=== PATIENT | female | born 1985 | race Two or more races ===

== ENCOUNTER 2025-01-15 07:46 | Emergency (ER) | payer MEDICAID, SELFPAY ==
[2025-01-15 07:54] VITALS: BP 126/83; PULSE 85; RESP 16; TEMP 36.8; O2SAT 100
[2025-01-15 07:55] VITALS: BMI 25.7
--- NOTE | 2025-01-15 08:06 | PD.EDEXREM ---
ED Extremity Problem RME/HPI General Chief complaint: Extremity Problem,Nontraumatic Stated complaint: RIGHT ARM PAIN X 1 WK WITH NUMBNESS Time Seen by Provider: 01/15/25 07:51 Source: patient Arrival date/time: 01/15/25 07:46 39-year-old female with no known medical history presents to the emergency room with a chief complaint of right shoulder pain and numbness that shoots around her right arm x 1 week. Patient denies any trauma injury. Mode of arrival: ambulatory Limitations: no limitations Related Data Home Medications ?Medication ?Instructions ?Recorded ?Confirmed prenat.vits,ayaan,lta-[id number] 1 tab PO QDAY 09/10/22 09/10/22 Previous Rx's ?Medication ?Instructions ?Recorded ibuprofen 600 mg tablet 600 mg PO Q8H PRN fever or pain 01/15/25 #20 tabs Allergies Allergy/AdvReac Type Severity Reaction Status Date / Time No Known Allergies Allergy Unverified 01/15/25 07:49 Review of Systems Review of Systems Systems Reviewed: All systems reviewed, normal except as documented Constitutional Constitutional: Reports system reviewed and no additional complaints, except as documented, Denies fatigue, Denies fever(s), Denies headache(s) and Denies weakness Eyes Eyes: Reports system reviewed and no additional complaints, except as documented, Denies blurry vision and Denies change in vision ENT Ears, Nose, Mouth, and Throat: Reports system reviewed and no additional complaints, except as documented, Denies otalgia, Denies headache(s), Denies nasal congestion, Denies throat swelling and Denies vertigo Cardiovascular Cardiovascular: Reports system reviewed and no additional complaints, except as documented, Denies chest pain, Denies dyspnea and Denies dyspnea on exertion Respiratory Respiratory: Reports system reviewed and no additional complaints, except as documented, Denies chest congestion, Denies cough, Denies dyspnea, Denies dyspnea on exertion and Denies wheezing Gastrointestinal Gastrointestinal: Reports system reviewed and no additional complaints, except as documented, Denies abdominal pain, Denies cramping, Denies nausea and Denies vomiting Genitourinary Genitourinary: Reports system reviewed and no additional complaints, except as documented Musculoskeletal Musculoskeletal: Reports system reviewed and no additional complaints, except as documented, Reports arthralgias, Denies back pain, Denies joint swelling, Reports limited range of motion and Reports tingling Integumentary/Breasts Skin/Breast: Reports system reviewed and no additional complaints, except as documented and Denies wounds Neurologic Neurologic: Reports system reviewed and no additional complaints, except as documented, Denies confusion, Denies headache(s), Denies lack of coordination, Reports tingling, Denies vertigo and Denies weakness Psychiatric Psychiatric: Reports system reviewed and no additional complaints, except as documented, Denies anxiety, Denies confusion, Denies depression, Denies paranoia, Denies suicidal ideation and Denies tactile hallucinations Endocrine Endocrine: Reports system reviewed and no additional complaints, except as documented and Denies fatigue Hematologic/Lymphatic Hematologic/Lymphatic: Reports system reviewed and no additional complaints, except as documented and Denies lymphadenopathy Allergic/Immunologic Allergic/Immunologic: Reports system reviewed and no additional complaints, except as documented, Denies throat swelling, Denies urticaria and Denies wheezing Past Medical History Past Medical History NEUROLOGIC: Negative Neurological Disorders CARDIAC: Negative Cardiac Disorders or Congestive Heart Failure RESPIRATORY: Negative Chronic Obstructive Pulmonary Disease (COPD) GASTROINTESTINAL: Negative Gastrointestinal Disorders or Hepatitis GENITOURINARY: Negative Genitourinary Disorders or Renal Disease MUSCULOSKELETAL: Negative Musculoskeletal Disorders ENDOCRINE: Negative Endocrine Disorders, Diabetes Mellitus Type 1 or Diabetes Mellitus Type 2 HEMATOLOGIC: Negative Blood Disorders OTHER HISTORY: Positive Hospitalization (CHILDBIRTH) and Chicken Pox; Negative Autoimmune Disease, Down Syndrome, Developmental Delay, Shingles, Falls, Blood Transfusions, MRSA, VRSA, Vancomycin-Resistant Enterococci, Human Immunodeficiency Virus (HIV), Measles, Mumps, Rubella (Irish Measles), Pertussis, Clostridium Difficile or Cancer Family History FAMILY HISTORY: Negative Family Psychiatric Problems, Family Respiratory Disorders, Family Cardiac Disorders, Family Gastrointestinal Problems, Family Cancer or Family Surgery Surgical History SURGICAL: Negative Section Social History SMOKING STATUS: Never smoker SECOND HAND EXPOSURE: No ED Exam General Limitations: Present no limitations General appearance: Present alert and in no apparent distress Head Head exam: Present atraumatic Eye Eye exam: Present normal appearance, PERRL and EOMI ENT ENT exam: Present normal exam, normal oropharynx and mucous membranes moist Neck Neck exam: Present normal inspection, full ROM and trachea midline Chest Chest inspection: Present normal inspection and symmetric chest wall rise Respiratory Respiratory exam: Present normal lung sounds bilaterally Cardiovascular Cardiovascular exam: Present regular rate, normal rhythm and normal heart sounds Abdominal Exam Abdominal exam: Present soft and normal bowel sounds Extremities Exam Extremities exam: Present normal inspection and full ROM Expanded Upper Extremity Exam Shoulder exam: Present tenderness; Absent full ROM, swelling, abrasion, deformity or tenderness over AC joint Arm exam: Present normal inspection Elbow exam: Present normal inspection Forearm/Wrist exam: Present normal inspection Hand exam: Present normal inspection Vascular exam: Normal capillary refill Back Exam Back exam: Present normal inspection and full ROM Neurological Exam Neurological exam: Present alert, oriented X3 and CN II-XII intact Psychiatric Psychiatric exam: Present normal affect and normal mood Skin Skin exam: Present warm, dry, intact and normal color Course Quality Measures none Orders Category Date Time Status Ketorolac Inj [Toradol Inj] Med 01/15/25 08:06 Discontinued 30 mg IM X1 ONE Vital Signs Vital signs: Vital Signs Temperature 98.3 F 01/15/25 07:54 Pulse Rate 85 01/15/25 07:54 Respiratory Rate 16 01/15/25 07:54 Blood Pressure 126/83 01/15/25 07:54 Pulse Oximetry (%) 100 01/15/25 07:54 Oxygen Delivery Method Room Air 01/15/25 07:54 O2 saturation 100% within normal limits Extremity Problem MDM Narrative MDM Narrative:: 39-year-old female with no known medical history presents to the emergency room with a chief complaint of right shoulder pain and numbness that shoots around her right arm x 1 week. Patient denies any trauma injury. Patient is hemodynamically stable and in no apparent distress. Physical examination shows a limited range of motion to the right shoulder. Patient has difficulty raising it above her head. Patient denies any trauma to the area and there is no point tenderness. Patient states that her tenderness occurs when she moves her arm. Patient has good +2 capillary refill to the arm. There is active pulses that are strong and regular bilaterally. There is no discoloration or temperature change to the arm. Patient states she has numbness that is intermittent and shoots down her right arm. The patient denies any traumatic injury there is no pulling injury. Patient was given medication and educated that she needs to follow-up with her primary care provider as an MRI is indicated to check for any ligament damage or tears. Patient was educated return to the emergency room for any evidence of worsening signs or symptoms Patient data External records reviewed:: [facility] previous records Clinical information provided by:: patient Social determinants that could affect healthcare access:: none Patient has the following chronic illnesses:: No chronic illness How is presenting disease/condition affected by chronic disease/condition?: no chronic disease Evaluation data The following diagnostics were reviewed and interpreted by me:: lab results and radiology exam(s) Lab and/or radiology exams considered but not ordered:: Labs and radiology exams considered and ordered Interpretation Summary: N/A Medications / Prescriptions Medications or Prescriptions considered but not ordered:: N/A Medication administrations:: Medication Administration History Discontinued Medications Ketorolac Tromethamine (Ketorolac Inj 60 Mg/2 Ml Vial) 30 mg IM X1 ONE Stop: 01/15/25 08:07 Medication given Consultations Consultation(s) initiated? (list below): No Diagnosis Extremity Problem Differential Diagnosis: other (Shoulder sprain/shoulder fracture) Most likely diagnosis given after review of the tests above:: Shoulder sprain Admission Indicated Admission indicated?: not indicated Admission Request Was there a request for admission?: No Disposition Plan Disposition Plan: Discharge Discharge Attestation Discharge Attestation: The patient and all family members were given an opportunity to ask questions and understood the discharge instructions. Discharge instructions specifically effects, indications for sooner follow up or return to the emergency department, and the expected course of current diagnosis. Patient condition: Stable Discharge Plan Plan Patient Disposition: HOME (Self Care) Disposition Comment: Stable Prescriptions/Referrals Prescriptions/Med Rec: New ibuprofen 600 mg tablet 600 mg PO Q8H PRN (Reason: fever or pain) Qty: 20 0RF No Action Vitamin Tablet 1 tab PO QDAY Problem List Clinical Impression: Sprain of right shoulder joint Patient/Caregiver Discharge Instructions Education Materials: Self-Care for Strains and Sprains, ED Shoulder Sprain Additional Instructions: Please follow-up with your primary care provider in the next 24 to 48 hours. The injury that you have in your shoulder is ligament related. Please follow-up with your primary care provider if your symptoms continue as an MRI may be indicated to check for any ligament damage or tears. I sent over medication that we will help with your swelling. For any evidence of worsening signs or symptoms return to the emergency room immediately Print Language: Azeri Stand Alone Forms: Keke Award Info., Patient Portal Info Letter PA/VICE PRESIDENT OF ENGINEERING Supervising Physician PA/VICE PRESIDENT OF ENGINEERING Supervising Physician: Dr. Fabian
[2025-01-15] MEDS: KETOROLAC INJ 60 MG/2 ML VIAL 30 MG IM (08:35)
== END 2025-01-15 08:39 | disposition home or self-care (01) ==
LOC: SERX 08:46
PROVIDERS: Emergency Provider Emergency Medicine; PCP Physician Assistant
DX: S43.401A Unspecified sprain of right shoulder joint, initial encounter (principal); X58.XXXA Exposure to other specified factors, initial encounter
CPT/HCPCS: 96372; 99283; J1885

== ENCOUNTER → 2025-01-17 | Outpatient (CLI) | payer MEDICAID, SELFPAY ==
--- NOTE | 2025-01-17 | XR_ITS ---
Examination: Shoulder,right, 3 views Technique: Shoulder AP internal rotation, AP external rotation, Y view shoulder, 3 views Exam date and time :January 17, 2025 0731 hrs. Indications: Right shoulder neck pain beginning one week ago Findings: No shoulder fracture or dislocation No arthritic change No calcific tendinitis Impression: Negative examination
--- NOTE | 2025-01-17 | XR_ITS ---
EXAMINATION: Cervical spine, 5 views Technique: Cervical spine AP, AP odontoid, lateral, bilateral obliques, 5 views Exam date and time: January 17, 2025 0725 hrs. Indications: Right shoulder neck pain beginning one week ago. Findings: Reversal normal cervical lordosis Mild disc narrowing C5-C6 No significant neural foraminal stenosis The odontoid is intact Impression: No cervical fracture Early degenerative disc disease C5-C6
== END | disposition home or self-care (01) ==
PROVIDERS: PCP Physician Assistant; Referring Provider Physician Assistant; Visit Provider Physician Assistant
DX: M50.322 Other cervical disc degeneration at C5-C6 level (principal); M25.511 Pain in right shoulder
CPT/HCPCS: 72050; 73030

== ENCOUNTER 2025-03-15 15:30 | Outpatient (RCR) | payer MEDICAID, SELFPAY ==
--- NOTE | 2025-03-03 15:08 | PT.OIERPT ---
PT OP Initial Eval Patient Information Outpatient Physical Therapy Treatment Date: 03/03/25 Visit Reasons: Pain in RT arm Medical Diagnosis: Neck Pain; Right Arm Pain Treatment Dx #1: Neck Pain Treatment Dx #2: Right Arm Pain Start of Care: 03/03/25 Date of Onset: 2 months ago Smoking Status Smoking Status: Never smoker Initial Assessment Subjective: Pt is a 39 y/o female reports of neck and right arm pain (8/10) ~ 2 months ago. Pt's xray showed early DDD of C5-C6. Pt has limitation with gripping, lifting, overhead motions, chores, and self care activities. Pt's provider wants to attempt physical therapy first prior to ordering MRI. Objective: C/S AROM: all motions are WFL with end range pain in all plane Right Shoulder AROM: all motions are WFL Right Shoulder MMTs: grossly 3+/5 Palpation: hypomobile C5-C6 facet Assessment: Pt demonstrate neck and right shoulder pain leading to difficulty with ADLs. 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
--- NOTE | 2025-03-07 09:50 | PT.ODAYNRPT ---
PT Outpatient Daily Note OP Daily Note Outpatient Physical Therapy Treatment Date: 03/07/25 Visit Reasons: Pain in RT arm Subjective: Pt's neck is about the same and still notice some pain down the arm. Objective: Please see flow chart for list of ther ex performed Assessment: cues to correct y's and t's exercises to improve form. Less neck pain post PT session reported Plan: Continue with PT Length of Time (minutes) of Treatment: 30 Minutes Procedure Charges Therapeutic Exercise 30 minutes: Yes
--- NOTE | 2025-03-15 16:06 | PT.ODAYNRPT ---
PT Outpatient Daily Note OP Daily Note Outpatient Physical Therapy Treatment Date: 03/15/25 Visit Reasons: Pain in RT arm Subjective: Pt's felt better after last time. Pt mentioned traction seems to help with the pain. Objective: Please see flow chart for list of ther ex performed Assessment: decrease pain post PT session. Added nerve flossing with good tolerance Plan: Continue with PT Length of Time (minutes) of Treatment: 30 Minutes Procedure Charges Therapeutic Exercise 30 minutes: Yes
== END 2025-03-22 23:59 | disposition home or self-care (01) ==
LOC: CPTX 15:30
PROVIDERS: PCP Physician Assistant; Referring Provider Physician Assistant; Visit Provider Physician Assistant
DX: M54.2 Cervicalgia (principal); M25.511 Pain in right shoulder; M50.322 Other cervical disc degeneration at C5-C6 level
CPT/HCPCS: 97110; 97162

== ENCOUNTER 2025-04-12 14:00 | Outpatient (RCR) | payer MEDICAID, SELFPAY ==
--- NOTE | 2025-03-29 16:00 | PT.ODAYNRPT ---
PT Outpatient Daily Note OP Daily Note Outpatient Physical Therapy Treatment Date: 03/29/25 Visit Reasons: Pain in RT arm Subjective: Pt's neck is a little better. Pt feels that the main thing helping the neck is traction. Objective: Please see flow chart for list of ther ex performed Assessment: cues to correct open book exercise to achieve more t/s rotation Plan: Continue with PT Length of Time (minutes) of Treatment: 30 Minutes Procedure Charges Therapeutic Exercise 30 minutes: Yes
--- NOTE | 2025-04-06 16:02 | PTNOTE_ITS ---
PT Outpatient Daily Note OP Daily Note Outpatient Physical Therapy Treatment Date: 04/06/25 Visit Reasons: Pain in RT arm Subjective: Pt's neck and arm pain is about the same. No change in overall symptoms. Traction helps when in use but pain comes back in a few days Objective: Please see flow chart for list of ther ex performed Assessment: decrease pain post PT session. 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
--- NOTE | 2025-04-12 14:14 | PT.ODS1RPT ---
PT OP Progress/Discharge Note Date of Service: 04/12/25 Progress Note/DC Note Progress Note/Discharge Note: DC Note Patient Information Visit Reasons: Pain in RT arm Medical Diagnosis: Neck Pain; Right Arm Pain Treatment Dx #1: Neck Pain Service Discharge Date: 04/12/25 Status Subjective: Pt's neck is about the same and continues to have arm pain. Pt mentioned physical therapy help short term. Pt continues to have limitation with chores, self care, cooking, cleaning, and performing recreational activities. Objective: C/S AROM: all motions are WFL Right Shoulder AROM: all motions are WFL Right Shoulder MMTs: grossly 3+/5 Assessment: Pt demonstrate functional c/s mobility, however, continues to have pain leading to difficulty with ADLs. Pt will no longer benefit from physical therapy due to minimal progression towards goals. Recommend c/s MRI to help rule in/out nature of pain. Pt was instructed on HEP last session and educated to continue exercises to maintain overall mobility. Pt performed all exercises safely, thank you for your referrals. Plan: D/C home with HEP and follow up with provider Recommend c/s MRI Procedure Charges Traction Mechanical: Yes Therapeutic Exercise 15 minutes: Yes
== END 2025-04-22 23:59 | disposition home or self-care (01) ==
LOC: CPTX 14:00
PROVIDERS: PCP Physician Assistant; Referring Provider Physician Assistant; Visit Provider Physician Assistant
DX: M25.511 Pain in right shoulder (principal); M50.322 Other cervical disc degeneration at C5-C6 level
CPT/HCPCS: 97012; 97110

== ENCOUNTER → 2025-07-10 | Outpatient (CLI) | payer MEDICAID, SELFPAY ==
--- NOTE | 2025-07-10 15:00 | XR_ITS ---
MRI shoulder, right, without contrast. Date and time: [facility] 2024 1557 hours INDICATIONS: Right shoulder pain beginning December 2024, with paresthesias and numbness Technique: Multiple axial, sagittal and coronal sections of the shoulder have been obtained. Siemens high-resolution 1.5 Diana MRI scanner is utilized. Axial fat-suppressed sections, TR 2350, TE 18 T2-weighted coronal fat-saturated images, TR 3500, TE 7100 T1-weighted coronal images, TR 500, TE 15 T2-weighted sagittal fat-saturated images, TR 3500, TE 57 T1-weighted sagittal sections, TR 504, TE 13. Findings: Supraspinatus tendon insertion is intact. Infraspinatus tendon insertion is intact.. Subscapularis insertion is intact. Subscapularis bursa is not seen. Long head of the biceps is in the bicipital groove. No definite tear of the biceps superior labral anchor is seen. Retraction of the musculotendinous junction of the rotator cuff is not seen . Tendinosis pattern is mild. Distance between the acromium and humeral head is 5 mm Atrophy of the supraspinatus muscle is mild . Atrophy of the infraspinatus muscle is not seen. Sagittal sections demonstrate a horizontal acromion. Acromioclavicular joint demonstrates mild osteoarthritis . Osacromiale is not identified. No labral tear. Bony glenoid fossa on the sagittal sections does not demonstrate osseous defect. Occult fracture or area of avascular necrosis is not seen. Acromioclavicular joint separation is not visible. Defect in the posterolateral margin of the humeral head is not seen Impression: Rotator cuff and labral margins appear intact
== END | disposition home or self-care (01) ==
LOC: SMRI 14:42
PROVIDERS: PCP Physician Assistant; Referring Provider Physician Assistant; Visit Provider Physician Assistant
DX: M25.511 Pain in right shoulder (principal)
CPT/HCPCS: 73221